=== PATIENT | female | born 2005 | race African-American/Black ===

== ENCOUNTER 2024-02-19 14:59 | Outpatient (CLI) | payer OTHER | END 2024-02-19 15:00 | disposition home or self-care (01) | LOC: CSHULT 14:59 | PROVIDERS: ATTEND Family Medicine | DX: R10.2 Pelvic and perineal pain (principal) | CPT/HCPCS: 76856 ==

== ENCOUNTER 2024-08-08 12:44 | Outpatient (CLI) | payer OTHER | END 2024-08-08 12:45 | disposition home or self-care (01) | LOC: CSHULT 12:44 | PROVIDERS: ATTEND Physician Assistant | DX: R10.30 Lower abdominal pain, unspecified (principal) | CPT/HCPCS: 76830 ==